=== PATIENT | female | born 2000 | race Caucasian/White ===

== ENCOUNTER 2020-08-15 21:36 | Inpatient (IN) | payer MEDICAID ==
[2020-08-15] MEDS ORDERED: Sodium Chloride 0.9% 10 ML Syringe FLUSH PRN (23:07)
[2020-08-15] MEDS ORDERED: Nalbuphine 10 MG/ML Syringe IVPUSH PRN (23:07)
[2020-08-15] MEDS ORDERED: Oxytocin/Lactated Ringers 10 UNIT/1,000 ML BAG IV SCH ×2 (23:15)
[2020-08-16] MEDS ORDERED: Bupivacaine 0.25% 10 ML SDV ONE
[2020-08-16] MEDS: Lactated Ringers 1,000 ML IV SCH ×4 (00:39→06:43)
[2020-08-16] MEDS ORDERED: diphenhydrAMINE 50 MG/ML SDV IVPUSH PRN (04:03)
[2020-08-16] MEDS ORDERED: ePHEDrine 50 MG/ML SDV IVPUSH PRN (04:03)
[2020-08-16] MEDS ORDERED: fentaNYL 100 MCG/2 ML SDV EPIDUR PRN (04:03)
[2020-08-16] MEDS ORDERED: Bupivacaine/fentaNYL/NS 100 ML Bag EPIDUR PRN (04:03)
--- NOTE | 2020-08-16 04:37 | PCM.PREANE ---
Preanesthetic Assessment - Procedure Proposed Procedure: epidural - Anesthesia/Transfusion/Family Hx Anesthesia History: No Prior Anesthesia Family History of Anesthesia Reaction: No Transfusion History: No Prior Transfusion(s) - Review of Systems General: Fatigue Pulmonary: No Symptoms Cardiovascular: No Symptoms Gastrointestinal: Abdominal Pain (labor) Neurological: No Symptoms Other: Reports: None - Physical Assessment Vital Signs: Last Vital Signs Temp 37.1 C 08/15/20 21:55 Pulse 94 08/15/20 21:55 Resp 18 08/15/20 21:55 BP 123/79 08/15/20 21:55 Pulse Ox 98 08/15/20 21:55 Height: 1.78 m Weight: 73.482 kg ASA Class: 2 Mental Status: Alert & Oriented x3 Airway Class: Mallampati = 1 Dentition: Reports: Normal Dentition Thyro-Mental Finger Breadths: 3 Mouth Opening Finger Breadths: 3 ROM/Head Extension: Full Lungs: Clear to Auscultation, Normal Respiratory Effort Cardiovascular: Regular Rate, Regular Rhythm - Lab Values: Laboratory Last Values WBC 8.30 K/mm3 (3.98-10.04) 08/15/20 23:20 RBC 3.44 M/mm3 (3.98-5.22) L 08/15/20 23:20 Hgb 11.2 gm/dl (11.2-15.7) 08/15/20 23:20 Hct 33.5 % (34.1-44.9) L 08/15/20 23:20 MCV 97.4 fl (79.4-94.8) H 08/15/20 23:20 MCH 32.6 pg (25.6-32.2) H 08/15/20 23:20 MCHC 33.4 g/dl (32.2-35.5) 08/15/20 23:20 RDW Std Deviation 46.6 fL (36.4-46.3) H 08/15/20 23:20 Plt Count 179 K/mm3 (182-369) L 08/15/20 23:20 MPV 10.4 fl (9.4-12.3) 08/15/20 23:20 Neut % (Auto) 72.1 % (34.0-71.1) H 08/15/20 23:20 Lymph % (Auto) 15.4 % (19.3-51.7) L 08/15/20 23:20 Jones % (Auto) 11.0 % (4.7-12.5) 08/15/20 23:20 Eos % (Auto) 1.2 (0.7-5.8) 08/15/20 23:20 Baso % (Auto) 0.1 % (0.1-1.2) 08/15/20 23:20 Neut # (Auto) 5.98 K/mm3 (1.56-6.13) 08/15/20 23:20 Lymph # (Auto) 1.28 K/mm3 (1.18-3.74) 08/15/20 23:20 Jones # (Auto) 0.91 K/mm3 (0.24-0.36) H 08/15/20 23:20 Eos # (Auto) 0.10 K/mm3 (0.04-0.36) 08/15/20 23:20 Baso # (Auto) 0.01 K/mm3 (0.01-0.08) 08/15/20 23:20 Membrane Rupture Positive H 08/15/20 22:00 SARS-CoV-2 RNA (TALON) Negative (NEGATIVE) 08/15/20 22:00 Blood Type A NEGATIVE 08/15/20 23:20 Gel Antibody Screen Positive 08/15/20 23:20 - Allergies Allergies/Adverse Reactions: Allergies Allergy/AdvReac Type Severity Reaction Status Date / Time Penicillins Allergy Hives Verified 08/15/20 22:28 Sulfa (Sulfonamide Allergy Hives Verified 08/15/20 22:28 Antibiotics) - Anesthesia Plan Pre-Op Medication Ordered: None - Acknowledgements Anesthesia Type Planned: Epidural Pt an Appropriate Candidate for the Planned Anesthesia: Yes Alternatives and Risks of Anesthesia Discussed w Pt/Guardian: Yes Pt/Guardian Understands and Agrees with Anesthesia Plan: Yes PreAnesthesia Questionnaire Gastrointestinal History: Reports: GERD 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: - Past Surgical History Other HEENT Surgeries/Procedures: wears glasses - SUBSTANCE USE Smoking Status *Q: Former Smoker Tobacco Use Within Last Twelve Months: Cigarettes Recreational Drug Use History: No - HOME MEDS Home Medications: Home Meds Docosahexaenoic Acid [ Dha] 200 mg PO DAILY 08/15/20 [History] - CURRENT (IN HOUSE) MEDS Current Meds: Current Medications Diphenhydramine HCl (Benadryl) 25 mg IVPUSH Q6H PRN PRN Reason: pruritis Ephedrine Sulfate (Ephedrine Sulfate) 5 mg IVPUSH ASDIRECTED PRN PRN Reason: Hypotension Fentanyl (Sublimaze) 100 mcg EPIDUR Q3H PRN PRN Reason: Pain Last Admin: 08/16/20 04:23 Dose: 100 mcg Documented by: Fentanyl/Bupivacaine HCl (Fentanyl/Bupivacaine/Ns 2 Mcg-0.125% 100 Ml) 100 ml EPIDUR ASDIRECTED PRN PRN Reason: Pain Last Admin: 08/16/20 04:23 Dose: 100 ml Documented by: Lactated Ringer's (Ringers, Lactated) 1,000 mls @ 100 mls/hr IV ASDIRECTED LUIS Last Admin: 08/16/20 04:18 Dose: 100 mls/hr Documented by: Oxytocin/Lactated Ringer's (Pitocin In Lr 10 Units/1,000 Ml) 10 unit in 1,000 mls @ 12 mls/hr IV TITRATE LUIS; Protocol Last Titration: 08/16/20 04:09 Dose: 0 munits/min, 0 mls/hr Documented by: Oxytocin/Lactated Ringer's (Pitocin In Lr 10 Units/1,000 Ml) 10 unit in 1,000 mls @ 100 mls/hr IV .CONTINUOUS LUIS Nalbuphine HCl (Nubain) 10 mg IVPUSH Q2H PRN PRN Reason: Pain Sodium Chloride (Saline Flush) 10 ml FLUSH ASDIRECTED PRN PRN Reason: Keep Vein Open
--- NOTE | 2020-08-16 05:59 | PCM.LDHP ---
L&D History of Present Illness - General Date of Service: 08/16/20 Admit Problem/Dx: Patient Status Order with Admit Dx/Problem 08/15/20 22:11 Patient Status [ADT] Routine 08/15/20 23:07 Patient Status [ADT] Routine Admission Diagnosis/Problem Admission Diagnosis/Problem 08/16/20 05:50 Shabana is a 20-year-old 1 para 0 white female who is admitted to labor and delivery in early active labor with spontaneous rupture membranes on the evening of 08/15/2020 at 38-6/7 weeks gestational age with an MIGUELITO of 08/13/2020. Source of Information: Patient History Limitations: Reports: No Limitations - History of Present Illness Introduction:: Shabana is a 20-year-old 1 para 0 white female who is admitted to labor and delivery in early active labor with spontaneous rupture membranes on the evening of 08/15/2020 at 38-6/7 weeks gestational age with an MIGUELITO of 08/13/2020. She is adele mildly. Reports spontaneous rupture membranes with a gush of fluid and continued leakage since. On her last evaluation clinic her cervix was 2 cm, 80% effaced, very soft and mid position with a -2 station. Change to 3 cm, 80% effaced in the head has come down somewhat. heart tones are reassuring. 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 Her early care was mean. She has moved to [place] and has been seen on occasion at [facility] and patient transferred her care to [facility] women's clinic at approximately 35 weeks gestational age. Patient had menarche at approximately age 11. Cycles are regular. She reports no problems with her early part of her . She denies any STIs or abnormal Pap smears. course. Transfer care at 35 weeks. No problems before that. Fundal height was appropriate for dates. Her vital signs have been stable throughout her course. She is group B strep negative. She desired induction of labor at 08/16/2020. She declined genetic testing. She plans to breast-feed. Her Rh immunoglobulin and her Tdap immunization were given while at [facility] during her earlier care. Laboratory testing in shows her blood to be a negative with a negative antibody screen. RhoGam given earlier in the . Her hemoglobin at first visit was 12.6 g/dL. Platelets are 195,000. Pap smear was negative. She is rubella immune. RPR is nonreactive. Hepatitis B surface antigen and HIV assays were both negative. Her TSH on 05/23/2020 was 1.17. Second trimester testing showed hemoglobin to be 11.5 g/dL and platelets are 181,000. Her 1 hour GTT was 101. Group B strep screen was negative. Allergies: Penicillin which causes hives 2. Sulfa drugs. Medications: 1. vitamins 1 daily Ferrous sulfate 325 mg p.o. daily Past medical history: Unremarkable. Past surgical history: Unremarkable. Family history: Mother is alive and well. Father is alive has high cholesterol and is on medication for cholesterol and high blood pressure. He also suffers from obesity. He is age 43. One brother is alive and well. Maternal grandmother is from colon cancer at age 54. Maternal grandfather is alive with type 2 diabetes. Paternal grandfather is skin tag cancer and type 2 diabetes. Paternal grandmother is alive and well at age 80. There is family history of miscarriage and deliveries. There is however no family history of cancer otherwise, bleeding or blood clotting problems or anesthesia problems. Social history: Patient is . 's name is Brian. 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 They live in [facility]. She is a high school graduate. She does not use any significant also alcohol, drugs or tobacco. Review of systems: In general patient has no complaints loss of vaginal fluid and early contractions. Baby is active. Skin: Negative Lungs: No infectious symptoms or shortness of breath Cardiovascular: No chest pain or exercise intolerance Breasts: No lumps, changes in size, pain, dimpling, discharge or axillary or supraclavicular concerns. GI: Negative : changes noted. Musculoskeletal: Negative Neurological: Negative Physical exam: In general the patient is well-developed, well-nourished, pleasant female of stated age in no acute distress. On last evaluation in clinic on 08/08/2020 patient's blood pressure is 118/78. Weight was 159. Fundal height was 37 cm consistent with dates. Cervix was 2 cm, 80% effaced, -2 station, very soft in mid position. Skin is warm dry without lesions. HEENT, neck and back within normal limits. Lungs are clear with good breath sounds in all lung arroyo. Cardiovascular exam shows regular and rhythm without murmurs. Breast exam deferred. This was done at first visit and found to be normal by patient's history is not repeated at this time. Abdomen is gravid with fundal height on last evaluation clinic consistent with dates.. Genital per digital exam as described in HPI. Extremities and neurological exam are grossly within normal limits. 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: - Past Surgical History Other HEENT Surgeries/Procedures: wears glasses Social & Family History - Family History Family Medical History: Noncontributory - Tobacco Use Smoking Status *Q: Former Smoker Years of Tobacco use: 3 Packs/Tins Daily: 1 Used Tobacco, but Quit: Yes Month/Year Tobacco Last Used: 06/2020 - Recreational Drug Use Recreational Drug Use: No H&P Review of Systems - Review of Systems: Review Of Systems: See Below L&D Exam - Exam Exam: See Below - Vital Signs Vital Signs: Last Vital Signs Temp 37.1 C 08/15/20 21:55 Pulse 94 08/15/20 21:55 Resp 18 08/15/20 21:55 BP 123/79 08/15/20 21:55 Pulse Ox 98 08/15/20 21:55 Weight: 73.482 kg - Patient Data Lab Results Last 24 hrs: Laboratory Results - last 24 hr 08/15/20 08/15/20 08/15/20 Range/Units 22:00 22:00 23:20 WBC 8.30 (3.98-10.04) K/mm3 RBC 3.44 L (3.98-5.22) M/mm3 Hgb 11.2 (11.2-15.7) gm/dl Hct 33.5 L (34.1-44.9) % MCV 97.4 H (79.4-94.8) fl MCH 32.6 H (25.6-32.2) pg MCHC 33.4 (32.2-35.5) g/dl RDW Std Deviation 46.6 H (36.4-46.3) fL Plt Count 179 L (182-369) K/mm3 MPV 10.4 (9.4-12.3) fl Neut % (Auto) 72.1 H (34.0-71.1) % Lymph % (Auto) 15.4 L (19.3-51.7) % [place] % (Auto) 11.0 (4.7-12.5) % Eos % (Auto) 1.2 (0.7-5.8) Baso % (Auto) 0.1 (0.1-1.2) % Neut # (Auto) 5.98 (1.56-6.13) K/mm3 Lymph # (Auto) 1.28 (1.18-3.74) K/mm3 [place] # (Auto) 0.91 H (0.24-0.36) K/mm3 Eos # (Auto) 0.10 (0.04-0.36) K/mm3 Baso # (Auto) 0.01 (0.01-0.08) K/mm3 Membrane Rupture Positive H SARS-CoV-2 RNA (TALON) Negative (NEGATIVE) Blood Type Gel Antibody Screen 08/15/20 Range/Units 23:20 WBC (3.98-10.04) K/mm3 RBC (3.98-5.22) M/mm3 Hgb (11.2-15.7) gm/dl Hct (34.1-44.9) % MCV (79.4-94.8) fl MCH (25.6-32.2) pg MCHC (32.2-35.5) g/dl RDW Std Deviation (36.4-46.3) fL Plt Count (182-369) K/mm3 MPV (9.4-12.3) fl Neut % (Auto) (34.0-71.1) % Lymph % (Auto) (19.3-51.7) % [place] % (Auto) (4.7-12.5) % Eos % (Auto) (0.7-5.8) Baso % (Auto) (0.1-1.2) % Neut # (Auto) (1.56-6.13) K/mm3 Lymph # (Auto) (1.18-3.74) K/mm3 [place] # (Auto) (0.24-0.36) K/mm3 Eos # (Auto) (0.04-0.36) K/mm3 Baso # (Auto) (0.01-0.08) K/mm3 Membrane Rupture SARS-CoV-2 RNA (TALON) (NEGATIVE) Blood Type A NEGATIVE Gel Antibody Screen Positive Result Diagrams: 08/15/20 23:20 Problem List Initiated/Reviewed/Updated: Yes Orders Last 24hrs: Active Orders 24 hr Category Date Time Status Patient Status [ADT] Routine ADT 08/15/20 23:07 Active Activity as Tolerated [RC] PFP Care 08/15/20 23:07 Active Communication Order [RC] ASDIRECTED Care 08/15/20 23:07 Active Communication Order [RC] ASDIRECTED Care 08/16/20 04:04 Active Cooling Warming Measures [RC] ASDIRECTED Care 08/16/20 04:04 Active Heart Tones [RC] ASDIRECTED Care 08/15/20 23:07 Active Non Stress Test [RC] PER UNIT ROUTINE Care 08/15/20 22:11 Active Notify Provider [RC] ASDIRECTED Care 08/16/20 04:03 Active Notify Provider [RC] ASDIRECTED Care 08/16/20 04:04 Active Notify Provider [RC] PFP Care 08/15/20 23:07 Active Notify Provider [RC] PRN Care 08/15/20 23:07 Active Oxygen Therapy [RC] ASDIRECTED Care 08/16/20 04:04 Active Peripheral IV Care [RC] Q2HR Care 08/15/20 23:07 Active Pulse Oximetry [RC] ASDIRECTED Care 08/16/20 04:04 Active Vital Signs [RC] 03,09,15,21 Care 08/15/20 22:11 Active Vital Signs [RC] Q1H Care 08/16/20 04:04 Active Regular Diet [DIET] Diet 08/15/20 Breakfast Active ANTIBODY IDENTIFICATION [BBK] Stat Lab 08/15/20 23:20 Results PATIENT RETYPE [BBK] Routine Lab 08/15/20 23:35 Ordered RAPID PLASMA REAGIN,RPR [CHEM] Routine Lab 08/15/20 23:20 Received TYPE AND SCREEN [BBK] Stat Lab 08/15/20 23:20 Results Bupivacaine/fentaNYL/NS [fentaNYL/Bupivacaine/NS 2 MCG- Med 08/16/20 04:03 Active 0.125% 100 ML] 100 ml EPIDUR ASDIRECTED PRN Lactated Ringers [Ringers, Lactated] 1,000 ml Med 08/15/20 23:15 Active IV ASDIRECTED Nalbuphine [Nubain] Med 08/15/20 23:07 Active 10 mg IVPUSH Q2H PRN Oxytocin/Lactated Ringers [Pitocin in LR 10 Units/1,000 Med 08/15/20 23:15 Active ML] 10 unit in 1,000 ml IV .CONTINUOUS Oxytocin/Lactated Ringers [Pitocin in LR 10 Units/1,000 Med 08/15/20 23:15 Active ML] 10 unit in 1,000 ml IV TITRATE Sodium Chloride 0.9% [Saline Flush] Med 08/15/20 23:07 Active 10 ml FLUSH ASDIRECTED PRN diphenhydrAMINE [Benadryl] Med 08/16/20 04:03 Active 25 mg IVPUSH Q6H PRN ePHEDrine [ePHEDrine sulfate] Med 08/16/20 04:03 Active 5 mg IVPUSH ASDIRECTED PRN fentaNYL [Sublimaze] Med 08/16/20 04:03 Active 100 mcg EPIDUR Q3H PRN Electronic Heart Tones Ext w TOCO [WOMSER] Oth 08/15/20 23:07 Ordered Routine Electronic Heart Tones Internal [WOMSER] Per Unit Oth 08/15/20 23:07 Ordered Routine Peripheral IV Insertion Adult [OM.PC] Routine Oth 08/15/20 23:07 Ordered Resuscitation Status Routine Resus Stat 08/15/20 22:11 Ordered Medication Orders Diphenhydramine HCl (Benadryl) 25 mg IVPUSH Q6H PRN PRN Reason: pruritis Ephedrine Sulfate (Ephedrine Sulfate) 5 mg IVPUSH ASDIRECTED PRN PRN Reason: Hypotension Fentanyl (Sublimaze) 100 mcg EPIDUR Q3H PRN PRN Reason: Pain Last Admin: 08/16/20 04:23 Dose: 100 mcg Documented by: MARIE Fentanyl/Bupivacaine HCl (Fentanyl/Bupivacaine/Ns 2 Mcg-0.125% 100 Ml) 100 ml EPIDUR ASDIRECTED PRN PRN Reason: Pain Last Admin: 08/16/20 04:23 Dose: 100 ml Documented by: MARIE Lactated Ringer's (Ringers, Lactated) 1,000 mls @ 100 mls/hr IV ASDIRECTED LUIS Last Admin: 08/16/20 04:18 Dose: 100 mls/hr Documented by: Infusion: 08/16/20 04:18 Dose: 100 mls/hr Documented by: Admin: 08/16/20 01:48 Dose: 100 mls/hr Documented by: Infusion: 08/16/20 01:48 Dose: 100 mls/hr Documented by: Admin: 08/16/20 00:39 Dose: 100 mls/hr Documented by: MARIE Oxytocin/Lactated Ringer's (Pitocin In Lr 10 Units/1,000 Ml) 10 unit in 1,000 mls @ 12 mls/hr IV TITRATE LUIS; Protocol Last Titration: 08/16/20 04:54 Dose: 2 munits/min, 12 mls/hr Documented by: Titration: 08/16/20 04:09 Dose: 0 munits/min, 0 mls/hr Documented by: Titration: 08/16/20 03:56 Dose: 2 munits/min, 12 mls/hr Documented by: Titration: 08/16/20 02:58 Dose: 6 munits/min, 36 mls/hr Documented by: Titration: 08/16/20 02:17 Dose: 4 munits/min, 24 mls/hr Documented by: Admin: 08/16/20 01:43 Dose: 2 munits/min, 12 mls/hr Documented by: MARIE Oxytocin/Lactated Ringer's (Pitocin In Lr 10 Units/1,000 Ml) 10 unit in 1,000 mls @ 100 mls/hr IV .CONTINUOUS LUIS Nalbuphine HCl (Nubain) 10 mg IVPUSH Q2H PRN PRN Reason: Pain Sodium Chloride (Saline Flush) 10 ml FLUSH ASDIRECTED PRN PRN Reason: Keep Vein Open Assessment/Plan Comment:: 1. 38-6/7-week intrauterine , spontaneous rupture membranes with early labor and slight progression of the cervical dilation and effacement. 2. Group B strep screen is negative 3. Patient is considering epidural 4. Patient has a negative blood. She has received Rh immunoglobulin during . 5. Patient is rubella immune. 6. Patient plans to breast-feed. Plan: 1. Anticipate normal spontaneous vaginal delivery 2. Routine labor care 3. COVID testing, CBC and RPR upon admission per protocol 4. Epidural per desire patient 5. Support breast-feeding plan.
[2020-08-16] MEDS ORDERED: FLU VACC QS2020-21(6MOS UP)/PF 60 MCG/0.5 ML SYRINGE IM ONE ×2 (09:00→14:00)
--- NOTE | 2020-08-16 13:36 | PCM.SN.2 ---
- Free Text/Narrative Note: Delivery note: Shabana is a 20-year-old 1 para 1001 white female who was admitted to labor and delivery in early active labor with spontaneous rupture membranes on the evening of 08/15/2020 at 38-6/7 weeks gestational age with an MIGUELITO of 08/13/2020. She made slow change with less than optimal labor. She was a ugmented with Pitocin during the first stage of labor. She underwent epidural for labor analgesia. She progressed to complete cervical dilation by approximately 1010 hrs. on 11/2019. Patient delivered a viable, gonzalez, female infant with Apgars of 8 and 9, a length of 20.5 inches and a weight of 3540 g (7 pounds 13 ounces) at 1040 hrs. on 08/16/2020 rectal occiput anterior position. Baby is placed on mom's abdomen, dried with nose and mouth bulb suction. Pitocin was increased to 500 cc an hour to increase uterine tone to attempt to decrease likelihood of bleeding. The umbilical cord is allowed to pulsate for 2 to 3 minutes and was clamped x2 and cut by the baby's grandmother. Cord blood was obtained. The umbilical cord had 3 vessels. The placenta delivered in a Lewis presentation, appeared intact and complete. Some membranes did come out after the placenta delivered. Patient had a small second-degree laceration which was repaired in a routine fashion with 3-0 Monocryl. Patient plans to breast-feed. Estimated blood loss was 200 cc. Condition: Good
[2020-08-16] MEDS ORDERED: Acetaminophen 325 MG Tab PO PRN (13:42)
[2020-08-16] MEDS: Witch Hazel Medicated Pads 40/Jar TOP PRN (14:25)
[2020-08-16] MEDS: Benzocaine/Menthol 20%-0.5% Spray 56 GM Canister TOP PRN (14:25)
[2020-08-16] MEDS: Ibuprofen 600 MG Tab PO PRN ×2 (14:40→18:41)
[2020-08-16] MEDS: Docusate Sodium 100 MG Cap PO PRN (21:01)
--- NOTE | 2020-08-17 07:43 | PCM48HPAN ---
Post Anesthesia Note - EVALUATION WITHIN 48HRS OF ANESTHETIC Vital Signs in Normal Range: Yes Patient Participated in Evaluation: Yes Respiratory Function Stable: Yes Airway Patent: Yes Cardiovascular Function Stable: Yes Hydration Status Stable: Yes Pain Control Satisfactory: Yes Nausea and Vomiting Control Satisfactory: Yes Mental Status Recovered: Yes Vital Signs: Last Vital Signs Temp 36.8 C 08/17/20 03:16 Pulse 73 08/17/20 03:16 Resp 12 08/17/20 03:16 BP 82/45 L 08/17/20 03:16 Pulse Ox 96 08/17/20 03:16 - COMMENTS/OBSERVATIONS Free Text/Narrative:: no anesthesia complications noted
[2020-08-17] MEDS: Docusate Sodium 100 MG Cap PO PRN (11:11)
[2020-08-17] MEDS: Ibuprofen 600 MG Tab PO PRN ×2 (11:11→20:36)
--- NOTE | 2020-08-17 12:26 | PCM.SN.2 ---
- Free Text/Narrative Note: note: Patient is doing well in the period. Minimal lochia, voiding well, ambulated without problems. Nursing without concerns. Patient is afebrile, vital signs are stable Abdomen is flat, soft, uterus is below the umbilicus and is firm and nontender. Legs are nontender. Assessment: recovery going well. Plan: Routine care. Patient be discharged home within the next 24- 48 hours.
[2020-08-17] MEDS: Witch Hazel Medicated Pads 40/Jar TOP PRN (17:13)
[2020-08-17] MEDS: Benzocaine/Menthol 20%-0.5% Spray 56 GM Canister TOP PRN (20:37)
[2020-08-18] MEDS: Docusate Sodium 100 MG Cap PO PRN (04:30)
[2020-08-18] MEDS: Ibuprofen 600 MG Tab PO PRN (04:30)
--- NOTE | 2020-08-18 06:36 | PCM.DCSUM1 ---
Discharge Summary - Hospital Course Free Text/Narrative:: Shabana is a 20-year-old 1 para 1001 white female who was admitted to labor and delivery in early active labor with spontaneous rupture membranes on the evening of 08/15/2020 at 38-6/7 weeks gestational age with an MIGUELITO of 08/13/2020. She made slow change with less than optimal labor. She was augmented with Pitocin during the first stage of labor. She underwent epidural for labor analgesia. She progressed to complete cervical dilation by approxi mately 1010 hrs. on 11/2019. Patient delivered a viable, gonzalez, female with Apgars of 8 and 9, a length of 20.5 inches and a weight of 3540 g (7 pounds 13 ounces) at 1040 hrs. on 08/16/2020 rectal occiput anterior position. Baby was placed on mom's abdomen, dried with nose and mouth bulb suction. Pitocin was increased to 500 cc an hour to increase uterine tone to attempt to decrease likelihood of bleeding. The umbilical cord was allowed to pulsate for 2 to 3 minutes and was clamped x2 and cut by the baby's grandmother. Cord blood was obtained. The umbilical cord had 3 vessels. The placenta delivered in a Lewis presentation, appeared intact and complete. Some membranes did come out after the placenta delivered. Patient had a small second-degree laceration which was repaired in a routine fashion with 3-0 Monocryl. Patient plans to breast-feed. Estimated blood loss was 200 cc. In the . Nursing is going well. Patient has minimal lochia, is voiding well and ambulating without problems. She is desiring discharge home. Condition: Good Diagnosis: Stroke: No - Discharge Data Discharge Date: 08/18/20 Discharge Disposition: Home, Self-Care 01 Condition: Good - Referral to Home Health Primary Care Physician: Albert Macdonald MD - Patient Instructions Diet: Regular Diet as Tolerated (Nursing diet with increased calories and calcium as recommended) Activity: As Tolerated (No intercourse or tampons until bleeding resolves) Driving: May Drive Today Showering/Bathing: May Shower Showering/Bathing, Other: May take a bath Notify Provider of: Fever, Increased Pain, Swelling and Redness, Nausea and/or Vomiting - Discharge Plan Home Medications: Home Meds Docosahexaenoic Acid [ Dha] 200 mg PO DAILY 08/15/20 [History] Acetaminophen [Tylenol] 650 mg PO Q4H PRN tablet 08/18/20 [Rx] Docusate Sodium [Colace] 100 mg PO BID PRN cap 08/18/20 [Rx] Ibuprofen [Motrin] 600 mg PO Q4H PRN tablet 08/18/20 [Rx] Patient Handouts: Care After Vaginal Delivery, Steps to Quit Smoking Referrals: Albert Macdonald MD [Primary Care Provider] - (Return to clinicDr. [facility]donald2 weeks.) - Discharge Summary/Plan Comment DC Time >30 min.: No Discharge Summary/Plan Comment: Discharge instructions: 1. Discharge home 2. Diet, activity and follow-up discussed with patient. Recommend nursing diet with increased calories and calcium. 3. Precautions given concern increased pain, bleeding, temperature, signs/symptoms of DVT/PE. 4. Medications per home medication was printed, discussed with and given to the patient. 5. Return to clinic-Dr. Macdonald[facility] [place] in 2 weeks. Diagnosis: Term -delivered Condition: Good - Patient Data Vitals - Most Recent: Last Vital Signs Temp 37.1 C 08/17/20 20:26 Pulse 84 08/17/20 20:26 Resp 15 08/17/20 20:26 BP 116/65 08/17/20 20:26 Pulse Ox 100 08/17/20 20:26 Weight - Most Recent: 73.482 kg I&O - Last 24 hours: Intake & Output 08/17/20 08/17/20 08/18/20 14:59 22:59 06:59 Intake Total 120 Balance 120 Med Orders - Current: Current Medications Acetaminophen (Tylenol) 650 mg PO Q4H PRN PRN Reason: mild pain or fever Benzocaine/Menthol (Dermoplast Pain Relief [place]) 0 gm TOP ASDIRECTED PRN PRN Reason: Perineal Comfort Measure Last Admin: 08/17/20 20:37 Dose: 1 can Documented by: Docusate Sodium (Colace) 100 mg PO BID PRN PRN Reason: Constipation Last Admin: 08/18/20 04:30 Dose: 100 mg Documented by: Ibuprofen (Motrin) 600 mg PO Q4H PRN PRN Reason: Mild pain or fever Last Admin: 08/18/20 04:30 Dose: 600 mg Documented by: Talisha Rivera (Christy) 1 pad TOP ASDIRECTED PRN PRN Reason: Perineal Comfort Measure Last Admin: 08/17/20 17:13 Dose: 1 tub Documented by: Discontinued Medications Bupivacaine HCl (Sensorcaine-Mpf 0.25%) 10 ml .ROUTE .STK-MED ONE Stop: 08/16/20 00:01 Diphenhydramine HCl (Benadryl) 25 mg IVPUSH Q6H PRN PRN Reason: pruritis Ephedrine Sulfate (Ephedrine Sulfate) 5 mg IVPUSH ASDIRECTED PRN PRN Reason: Hypotension Fentanyl (Sublimaze) 100 mcg EPIDUR Q3H PRN PRN Reason: Pain Last Admin: 08/16/20 04:23 Dose: 100 mcg Documented by: Fentanyl/Bupivacaine HCl (Fentanyl/Bupivacaine/Ns 2 Mcg-0.125% 100 Ml) 100 ml EPIDUR ASDIRECTED PRN PRN Reason: Pain Last Admin: 08/16/20 04:23 Dose: 100 ml Documented by: Lactated Ringer's (Ringers, Lactated) 1,000 mls @ 100 mls/hr IV ASDIRECTED LUIS Last Admin: 08/16/20 06:43 Dose: 100 mls/hr Documented by: Oxytocin/Lactated Ringer's (Pitocin In Lr 10 Units/1,000 Ml) 10 unit in 1,000 mls @ 12 mls/hr IV TITRATE LUIS; Protocol Last Titration: 08/16/20 07:52 Dose: 4 munits/min, 24 mls/hr Documented by: Oxytocin/Lactated Ringer's (Pitocin In Lr 10 Units/1,000 Ml) 10 unit in 1,000 mls @ 100 mls/hr IV .CONTINUOUS LUIS Last Admin: 08/16/20 11:54 Dose: 100 mls/hr Documented by: Influenza Virus Vaccine (Pharmacy To Dose - Influenza Vaccine) 1 each IM ONETIME ONE Stop: 08/16/20 08:54 Influenza Virus Vaccine (Fluzone Quad [id number] Syringe) 60 mcg IM .ONCE ONE Stop: 08/16/20 14:01 Last Admin: 08/17/20 13:36 Dose: Not Given Documented by: Nalbuphine HCl (Nubain) 10 mg IVPUSH Q2H PRN PRN Reason: Pain Sodium Chloride (Saline Flush) 10 ml FLUSH ASDIRECTED PRN PRN Reason: Keep Vein Open
== END 2020-08-18 07:26 | disposition home or self-care (01) | DRG 807 ==
LOC: JD.OB 21:36 → JD.OBCHECK 21:36 → JD.OB 23:07 → OBSVTOIN 08-16 10:40 → JD.OB 08-16 10:41 → EDSTATUS 08-16 21:33
PROVIDERS: ADMIT Obstetrics & Gynecology; ATTEND Obstetrics & Gynecology
PROC: 10E0XZZ Delivery of Products of Conception, External Approach (ICD-10-PCS; principal; 2020-08-16)
PROC: 0KQM0ZZ Repair Perineum Muscle, Open Approach (ICD-10-PCS; 2020-08-16)
PROC: 3E0R3BZ Introduction of Anesthetic Agent into Spinal Canal, Percutaneous Approach (ICD-10-PCS; 2020-08-16)
PROC: 00HU33Z Insertion of Infusion Device into Spinal Canal, Percutaneous Approach (ICD-10-PCS; 2020-08-16)
DX: O99.62 Diseases of the digestive system complicating childbirth (principal); Z37.0 Single live birth; K21.9 Gastro-esophageal reflux disease without esophagitis; Z87.891 Personal history of nicotine dependence; Z88.2 Allergy status to sulfonamides; O70.1 Second degree perineal laceration during delivery; Z20.828 Contact with and (suspected) exposure to other viral communicable diseases
CPT/HCPCS: 01967; 36415; 36430; 51702; 59025; 59409; 84112; 85025; 85461; 86592; 86850; 86870; 86900; 86901; A9270-GY; J2590; J2790; J3010; J3490; J7120; U0002